=== PATIENT | male | born 1970 | race Caucasian/White ===

== ENCOUNTER 2023-08-19 12:34 | Outpatient (AMB) | payer BC, SELFPAY ==
--- NOTE | 2023-08-19 12:36 | A.OFFPC_ITS ---
Vital Signs 08/19/23 12:40 Height 5 ft 9 in Weight 151 lb 2 oz BMI 22.3 BP 108/64 Blood Pressure Location Lt brachial Position Sitting Pulse 83 Pulse Source Pulse Oximeter Pulse Oximetry (%) 98 Intake Visit Reasons: est care Intake Note: Patient is here as a new patient to establish. Allergies Seasonal Allergies Allergy (Mild, Verified 08/19/23 12:43) Watery Eye Medication List - Last Reconciled 08/19/23 by Jenn Hogan, [facility] albuterol sulfate 90 mcg/actuation 2 puffs inhalation Q4-6H PRN 30 days apixaban (Eliquis) 5 mg PO BID carvedilol 25 mg PO BID digoxin PO furosemide 20 mg PO DAILY loratadine (Claritin) 10 mg PO DAILY losartan 50 mg PO DAILY pantoprazole 40 mg PO DAILY potassium chloride ER 10 mEq PO DAILY spironolactone 25 mg PO DAILY Tobacco use date assessed: 08/19/23 Dental Screening Dental Screen Date: 08/19/23 Did you have a dental visit in the last 12 months?: Yes Did you have a dental problem in the last 6 months where you did not have access to dental care?: No Was dental information given to patient?: No HPI HPI Comments History of Present Illness Details 53 y/o M with seasonal allergies, COPD, AFib, GERD, CHF, current smoker , renal stones Health Maintenance: Colon PSA Specialists: Ward, Dr Bautista, [facility] Here today to est care Coming from [facility] No medical records Afib - recent visit w/ Ward, will see him again in a few months. Admits to some noncompliance w/ meds d/t cost. Tries to ration what he has. GERD is well controlled with diet changes and PPI. 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 Needs FMLA completed. However did not bring the form for care for Others He did bring the own serious health condition form. This was completed with Intermittent Leave from 08/06/23-01/06/24 with 2 episodes of incapacity per week, lasting 2 days per episode. In regards to his COPD, he is a current smoker, working on reduction. Has never been referred for lung ca screening. He is interested in this. Cannot afford his inhalers. Thinks he is supposed to be on Spirivia Respimat. Whatever inhaler he has at home, he is using PRN only. Several ED visits and hospital admissions at [facility]. Would like to review records before ordering labs d/t cost. [facility] Medical History (Updated 08/19/23 @ 15:42 by Jenn Hogan [facility]) Afib COPD (chronic obstructive pulmonary disease) Surgical History (Updated 08/19/23 @ 12:47 by Melina Bentley CMA) No pertinent past surgical history Social History (Updated 08/19/23 @ 12:53 by Melina Bentley CMA) Household Members: None Both parents involved: No Caregiver staying overnight: No Housing: House Are you a primary pet care attendant to a significant other at home: No Do you presently have visiting nurse or other home services: No 75 years or older and lives alone: No Alcohol intake: current Alcohol intake frequency: 0-2 drinks per day Alcohol type: beer and hard liquor Patient Tobacco Use Status: Never used Tobacco Cigarettes Per Day: 10 e-Cigarette/Vaping Use: Never Used Substance Use Type: Crack/Cocaine and Marijuana Special cynthia needs: No service: No Current occupational status: employed Cognitive needs: No Hearing needs: No Vision needs: Yes (Patient wears glasses) Questionnaire PHQ-9 Over the last 2 weeks, how often have you been bothered by any of the following problems? 1. Little interest or pleasure in doing things: not at all 2. Feeling down, depressed, or hopeless: not at all 3. Trouble falling or staying asleep, or sleeping too much: not at all 4. Feeling tired or having little energy: not at all 5. Poor appetite or overeating: not at all 6. Feeling bad about yourself - or that you are a failure or have let yourself or your family down: not at all 7. Trouble concentrating on things, such as reading the newspaper or watching television: not at all 8. Moving or speaking so slowly that other people could have noticed. Or the opposite - being so fidgety or restless that you have been moving around a lot more than usual: not at all 9. Thoughts that you would be better off or of hurting yourself in some way: not at all Total score: 0 Depression Screening Interpretation: Negative Depression Screening Done: Yes 76839 - PHQ-9 Billing: Yes Source: Developed by Drs. Torsten Santillan, Nannette Lloyd, Efren Jc and colleagues, with an educational ehsan from [employer]. Thrive Questionnaire Date Thrive assessed: 08/19/23 I am a: Patient What is your living situation today?: I have a steady place to live Within the past 12 months, did the food you bought not last and you didn't have the money to get more?: Never true Within the past 12 months, did you worry whether your food would run out before you got money to buy more?: Never true Do you have trouble paying for medicines?: Yes Do you have trouble getting transportation to medical appointments?: No Do you have trouble paying your heating and electricity bill?: No Do you have trouble taking care of your child, family member or friend?: No Do you have trouble with day-to-day activities such as bathing, preparing meals, shopping, managing finances, etc.?: No Are you currently unemployed and looking for a job?: No Are you interested in more education?: No Please select the resources that you would like help with: Paying for medicine Currently or been in a relationship where the following occur: no concerns repo rted THRIVE Score: 0 AUDIT C Alcohol Use Questionnaire (AUDIT-C) 1. How often do you have a drink containing alcohol?: 4 or more times a week 2. How many drinks containing alcohol do you have on a typical day when you are drinking?: 1 or 2 3. How often do you have six or more drinks on one occasion?: Never Total Score: 4 Score Reviewed/Action Taken: Yes AVERY-7 AMB Questionnaire AVERY-7 Date AVERY - 7 assessed: 08/19/23 Feeling nervous, anxious, or on edge: 0 = Not at all Not being able to stop or control worryin = Not at all Worrying too much about different things: 0 = Not at all Trouble relaxin = Not at all Being so restless that it is hard to sit still: 0 = Not at all Becoming easily annoyed or irritable: 0 = Not at all Feeling afraid as if something awful might happen: 0 = Not at all Total AVERY-7 score (0-4 normal; 5-9 mild; 10-14 moderate; 15-21 severe): 0 Source: Developed by Drs. Torsten Santillan, Nannette Lloyd, Efren Jc and colleagues, with an educational ehsan from [employer]. AVERY-7 Assessment Billing AVERY-7 Assessment Tool: AVERY-7 Assessment 94784 Review of Systems Const All systems reviewed & are unremarkable except as noted in HPI and below Physical exam (Primary Care) Vital Signs: Last Vital Signs Pulse 83 08/19/23 12:40 BP 108/64 08/19/23 12:40 Pulse Ox 98 08/19/23 12:40 BMI result Body Mass Index 22.3 Tobacco/Smoking Status: Tobacco use Status Tobacco use date assessed 08/19/23 08/19/23 12:51 Patient Tobacco Use Status Never used Tobacco 08/19/23 12:53 e-Cigarette/Vaping Use Never Used 08/19/23 12:51 Are you ready to quit: Yes Tobacco cessation counseling provided: Yes Items discussed: Other Relapse Prevention: discussed the importance of a supportive environment, discussed extending NRT, discussed negative mood or depression after quitting, weight gain after smoking is common and discussed dietary, exercise and/or lifestyle changes Number of minutes spent counselin PHQ-9: PHQ-9 Score PHQ-9: Total score 0 08/19/23 12:56 Depression Screening Interpretation: Negative Thrive Assessment: Date of Thrive Assessment Date Thrive assessed 08/19/23 08/19/23 12:56 Currently or been in a relationship where the following occur: no concerns reported Const Other: Awake alert oriented, pleasant Positive rhinitis Irregular irregular rhythm Lung sounds with inspiratory expiratory wheezes throughout, occasional cough noted during exam Assessment and Plan Assessment & Plan (1) GERD (gastroesophageal reflux disease): Comment: Managed on PPI. Continue at this time. Code(s): K21.9 - Gastro-esophageal reflux disease without esophagitis Qualifiers: Esophagitis presence: without esophagitis Qualified Code(s): K21.9 - Gastro-esophageal reflux disease without esophagitis (2) COPD (chronic obstructive pulmonary disease): Comment: Is supposed to be on Spiriva however can not afford. I will prescribe ProAir today. The ikb-bh-myvtow cost to be around 16 dollars. He reports that he can afford this. I will refer him to pulmonology both for COPD management as well as lung cancer screening. I have also placed a referral to the nurse navigation team to see if they can help him with the cost of his medications. Code(s): J44.9 - Chronic obstructive pulmonary disease, unspecified Qualifiers: COPD type: chronic bronchitis Chronic bronchitis type: mixed simple and mucopurulent Qualified Code(s): J41.8 - Mixed simple and mucopurulent chronic bronchitis (3) Current smoker: Comment: Smoking cessation encouraged. Refer to lung cancer screening program. Code(s): F17.200 - Nicotine dependence, unspecified, uncomplicated (4) Encounter for screening involving social determinants of health (SDoH): Comment: Unable to afford medications. Sent nurse navigation referral to assist. Code(s): Z13.9 - Encounter for screening, unspecified (5) Afib: Comment: Rate controlled carvedilol 25 mg p.o. b.i.d., digoxin. Secondary hypercoagulable state due to AFib on Eliquis 5 mg p.o. b.i.d. Managed by Dr. Bautista Code(s): I48.91 - Unspecified atrial fibrillation Qualifiers: Atrial fibrillation type: longstanding persistent Qualified Code(s): I48.11 - Longstanding persistent atrial fibrillation (6) Secondary hypercoagulable state: Comment: Due to AFib, on Eliquis Code(s): D68.69 - Other thrombophilia (7) CHF (congestive heart failure): Comment: Managed by cardiology. Euvolemic. On carvedilol 25 mg p.o. b.i.d., losartan 50 mg p.o. daily, Lasix 20 mg p.o. daily, potassium chloride 10 mEq p.o. daily, spironolactone 25 mg daily. He reports echocardiogram is up-to-date. I will need to obtain these records. 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 Report weight gain of 3 lb in 24 hours or 5 lb in 1 week. Limit salt. 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 Report weight gain of 3 lb in 24 hours or 5 lb in 1 week. Limit salt. 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 Copy was scanned into chart Code(s): Z02.9 - Encounter for administrative examinations, unspecified Plan This note is constructed using voice recognition software. While every effort has been made to ensure accuracy in pen and pencil repairer, still errors may have been included Sometimes, these errors may affect the content or meaning of the given sentence . Total time spent caring for the patient today was 60 minutes. This includes time spent before the visit reviewing the chart, time spent during the visit, and time spent after the visit on documentation Orders: Referrals Pulmonology Referral F17.200 - Nicotine dependence, unspecified, uncomplicated, J44.9 - Chronic obstructive pulmonary disease, unspecified Nurse Navigator Referral Z13.9 - Encounter for screening, unspecified Cardiology Referral I48.91 - Unspecified atrial fibrillation Medications: New albuterol sulfate 90 mcg/actuation 2 puffs inhalation Q4-6H 30 days PRN 8.5 grams 0RF shortness of breath or wheezing loratadine (Claritin) 10 mg PO DAILY 90 tabs 0RF Patient Instructions: Please request her records to be sent to me for review. Follow up with me in 4- 6 weeks to continue to address chronic conditions. Coding Level of Care Code New Pt Level 5 (05917) Diagnoses Gastroesophageal reflux disease without esophagitis K21.9 Esophagitis presence: without esophagitis Mixed simple and mucopurulent chronic bronchitis J41.8 COPD type: chronic bronchitis Chronic bronchitis type: mixed simple and mucopurulent Current smoker F17.200 Encounter for screening involving social determinants of health (SDoH) Z13.9 Longstanding persistent atrial fibrillation I48.11 Atrial fibrillation type: longstanding persistent Secondary hypercoagulable state D68.69 Chronic congestive heart failure, unspecified heart failure type I50.9 Heart failure type: unspecified Heart failure chronicity: chronic Secondary hyperparathyroidism N25.81 Encounters for administrative purpose Z02.9 Additional Codes AVERY-7 Assessment Billing - AVERY-7 Assessment Tool: AVERY-7 Assessment 54086 ([id number])
[2023-08-19 12:40] VITALS: BP 108/64; PULSE 83; O2SAT 98; BMI 22.3
== END 2023-08-19 13:32 | disposition home or self-care (01) ==
PROVIDERS: Visit Provider Nurse Practitioner Family
DX: K21.9 Gastro-esophageal reflux disease without esophagitis (principal); J41.8 Mixed simple and mucopurulent chronic bronchitis; D68.69 Other thrombophilia; I48.11 Longstanding persistent atrial fibrillation; I50.9 Heart failure, unspecified; N25.81 Secondary hyperparathyroidism of renal origin; F17.210 Nicotine dependence, cigarettes, uncomplicated
CPT/HCPCS: 99205

== ENCOUNTER 2023-09-12 08:24 | Outpatient (AMB) | payer BC, SELFPAY ==
--- NOTE | 2023-09-12 08:43 | MHC.PC.OV ---
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 Accompanied by: Self / Same As Patient Allergies Seasonal Allergies Allergy (Mild, Verified 09/12/23 08:59) Watery Eye Medication List - Last Reconciled 09/12/23 by Jenn Hogan, [facility]- albuterol sulfate 90 mcg/actuation 2 puffs inhalation Q4-6H PRN 30 days apixaban (Eliquis) 5 mg PO BID carvedilol 25 mg PO BID digoxin PO furosemide 20 mg PO DAILY loratadine (Claritin) 10 mg PO DAILY losartan 50 mg PO DAILY pantoprazole 40 mg PO DAILY potassium chloride ER 10 mEq PO DAILY spironolactone 25 mg PO DAILY Tobacco use date assessed: 08/19/23 Dental Screening Dental Screen Date: 09/12/23 Did you have a dental visit in the last 12 months?: No Did you have a dental problem in the last 6 months where you did not have access to dental care?: No Was dental information given to patient?: Yes HPI HPI Comments History of Present Illness Details 53 y/o M with seasonal allergies, COPD, AFib with secondary hypercoaguable state, GERD, CHF with secondary hyperaldosteronism, current smoker , renal stones Health Maintenance: Colon - declined d/t finances. PSA declined d/t finances. tdap 2022 Specialists: Ward, Dr Bautista, [facility] next appt 1 year Pulm Here today to f/u on chronic conditions Did not make Pulm appt yet, will ask front end architect to f/u; did not get Albuterol d/t cost. Also did not get claritin d/t cost. Has been taking additional dose of Lasix over the last few days as he has been feeling bloated. He now needs a refill. Was referred to [facility] to help w/ finances but did not hear from them. message sent again today Remains on intermittent FMLA No medical records - asked if he could please try to get these for me. [facility] Medical History (Updated 09/12/23 @ 07:18 by Jenn Hogan [facility]) Afib COPD (chronic obstructive pulmonary disease) Surgical History (Updated 08/19/23 @ 12:47 by Melina Bentley CMA) No pertinent past surgical history Social History (Updated 08/19/23 @ 12:53 by Melina Bentley CMA) Household Members: None Both parents involved: No Caregiver staying overnight: No Housing: House Are you a primary patient care provider to a significant other at home: No Do you presently have visiting nurse or other home services: No 75 years or older and lives alone: No Alcohol intake: current Alcohol intake frequency: 0-2 drinks per day Alcohol type: beer and hard liquor Patient Tobacco Use Status: Never used Tobacco Cigarettes Per Day: 10 e-Cigarette/Vaping Use: Never Used Substance Use Type: Crack/Cocaine and Marijuana Special cynthia needs: No service: No Current occupational status: employed 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 Torsten Santillan, Nannette Lloyd, Efren Jc and colleagues, with an educational ehsan from [employer]. Review of Systems Const All systems reviewed & are unremarkable except as noted in HPI and below Physical exam (Primary Care) Vital Signs: Last Vital Signs Temp 98 F 09/12/23 08:48 Pulse 62 09/12/23 08:48 Resp 14 09/12/23 08:48 BP 98/70 09/12/23 08:48 Pulse Ox 96 09/12/23 08:48 Oxygen Delivery Method Room Air 09/12/23 08:48 BMI result Body Mass Index 21.7 Tobacco/Smoking Status: Tobacco use Status Tobacco use date assessed 08/19/23 09/12/23 08:45 Patient Tobacco Use Status Never used Tobacco 09/12/23 08:45 e-Cigarette/Vaping Use Never Used 09/12/23 08:45 Are you ready to quit: No Tobacco cessation counseling provided: Yes Items discussed: Other Relapse Prevention: discussed the importance of a supportive environment, discussed extending NRT, discussed negative mood or depression after quitting, weight gain after smoking is common and discussed dietary, exercise and/or lifestyle changes Number of minutes spent counselin CPT code: Less than 3 minutes Thrive Assessment: Date of Thrive Assessment Date Thrive assessed 08/19/23 09/12/23 08:45 Const Other: Awake alert oriented, pleasant MMM Irregular irregular rhythm Lung sounds dim throughout No edema BLE Assessment and Plan Assessment & Plan (1) CHF (congestive heart failure): Comment: Managed by cardiology. Euvolemic. On carvedilol 25 mg p.o. b.i.d., losartan 50 mg p.o. daily, Lasix 20 mg p.o. daily, potassium chloride 10 mEq p.o. daily, spironolactone 25 mg daily. He reports echocardiogram is up-to-date. I will need to obtain these records. Secondary hyperaldosteronism that activates the akkku-sepqpzdaelv-eafdnnwwstc system (RAAS), due to Heart failure Encouraged to weigh self daily. Report weight gain of 3 lb in 24 hours or 5 lb in 1 week. Limit salt. Code(s): I50.9 - Heart failure, unspecified Qualifiers: Heart failure type: unspecified Heart failure chronicity: chronic Qualified Code(s): I50.9 - Heart failure, unspecified (2) Secondary hyperaldosteronism: Comment: Secondary hyperaldosteronism that activates the yepuh-lceimhdtokw-ztmfzommtux system (RAAS), due to Heart failure Encouraged to weigh self daily. Report weight gain of 3 lb in 24 hours or 5 lb in 1 week. Limit salt. Code(s): E26.1 - Secondary hyperaldosteronism (3) Encounter for screening involving social determinants of health (SDoH): Comment: Unable to afford medications. Sent nurse navigation referral to assist. Code(s): Z13.9 - Encounter for screening, unspecified (4) Current smoker: Comment: Smoking cessation encouraged. Refer to lung cancer screening program. Code(s): F17.200 - Nicotine dependence, unspecified, uncomplicated Plan: This note is constructed using voice recognition software. While every effort has been made to ensure accuracy in road sign installer, still errors may have been included Sometimes, these errors may affect the content or meaning of the given sentence . Medications: Changed From furosemide 20 mg PO DAILY To furosemide 40 mg (2 x 20 mg) PO DAILY 60 tabs 2RF Patient Instructions: A new prescription for furosemide has been sent in for 20 mg tablets take 2 tablets daily. Advised the patient that the directions really should be 20 mg daily. Take additional 20 mg tablet as needed for signs and symptoms of heart failure. He has been using 40 mg of Lasix over the last few days due to feeling bloated. He has no signs of hypervolemia today. Advised to go back to taking 20 mg daily. Work with the nurse navigator to help afford prescriptions. Make appointment with pulmonology. Get me or medical records. Work on smoking cessation. Discussed using alternate pharmacy or mail away pharmacy to see if this cut your prescription costs. Return to the office in 3 months for routine follow up. Sooner as needed. Smoking Cessation How to Quit There are a lot of ways to quit smoking and many resources to help you. Family members, friends, and co-workers may be supportive or encouraging, but to be successful the desire and commitment to quit must be your own. Most people who have been able to successfully quit smoking made at least one unsuccessful attempt in the past. Try not to view past attempts to quit as failures, but rather as learning experiences. Stopping smoking or using smokeless tobacco is difficult, but anyone can do it. Know the symptoms to expect when you stop. Common symptoms include: ? An intense craving for nicotine ? Anxiety, tension, restlessness, frustration, or impatience ? Difficulty concentrating ? Drowsiness or trouble sleeping, as well as bad dreams and nightmares ? Drowsiness and trouble sleeping ? Headaches ? Increased appetite and weight gain ? Irritability or depression How severe your symptoms are depends on how long you smoked and how many cigarettes you smoked each day. Feel ready to quit? ? First and foremost, set a quit date and quit completely on that day. Before your quit date, you may begin reducing your cigarette use. But remember, there is no safe level of cigarette smoking. ? List the reasons why you want to quit. Include both short- and long-term benefits. ? Identify the times you are most likely to smoke. For example, do you tend to smoke when feeling stressed or down? When out at night with friends? While drinking coffee or alcohol? When bored? While driving? Right after a meal or sex? During a work break? While watching TV or playing cards? When you are with other smokers? ? Let all of your friends, family, and co-workers know of your plan to stop smoking and your quit date. Just being aware that they know what you're going through can be helpful, especially when you are grumpy. ? Get rid of all your cigarettes just before the quit date, and clean out anything that smells like smoke, such as clothes and furniture. Make a plan about what you will do instead of smoking at those times when you are most likely to smoke. ? Be as specific as possible. For example, drink tea instead of coffee -- tea may not trigger the desire for a cigarette. Or, take a walk when you feel stressed. ? Remove ashtrays and cigarettes from the car. Place pretzels or hard candies there instead. Pretend-smoke with a straw. ? Find activities that focus your hands and mind but are not taxing or fattening. Computer games, solitaire, knitting, sewing, and crossword puzzles may help. ? If you normally smoke after eating, find other ways to end a meal. Play a tape or CD, eat a piece of fruit, get up and make a phone call, or take a walk (a good distraction that also castro calories). Make other changes in your lifestyle. ? Change your daily schedule and habits. Eat at different times or eat several small meals instead of three large ones. Sit in a different chair or even a different room. ? Satisfy your oral habits by eating celery or other low-calorie snack, chewing sugarless gum, or sucking on a cinnamon stick. ? Go to public places and restaurants where smoking is prohibited or restricted. ? Eat regular meals and don't eat too much candy or sweet things. ? Get more exercise. Take walks or ride a bike. Exercise helps relieve the urge to smoke. Set short-term quitting goals and reward yourself when you meet them. ? Every day, put the money you normally spend on cigarettes in a jar. Then buy something pleasurable after a period of time. ? Try not to think about all the days ahead you will need to avoid smoking. Take it one day at a time. ? Even one puff or one cigarette will make your desire for more cigarettes even stronger. However, it is normal to make mistakes. So even if you have one cigarette, you don't need to take the next one. Other tips to help you quit smoking and stick to it: ? Enroll in a smoking cessation program (hospitals, health departments, community centers, and work sites often offer programs). Learn about self-hypnosis or other techniques. ? Ask your health care provider about prescription medications that are safe and appropriate for you. ? Find out about nicotine patches, gum, and sprays. The [place] [employer]'s web site -- www.cancer.org -- is an excellent resource for smokers who are trying to quit, and the [employer] [place] [employer] can help some smokers kick the habit. Above all, don't get discouraged if you aren't able to quit smoking the first time. Nicotine addiction is a hard habit to break. Try something different next time. Develop new strategies, and try again. Many people take several attempts to finally kick the habit. Coding Level of Care Code Est Pt Level 4 (74686) Diagnoses Chronic congestive heart failure, unspecified heart failure type I50.9 Heart failure type: unspecified Heart failure chronicity: chronic Secondary hyperaldosteronism E26.1 Encounter for screening involving social determinants of health (SDoH) Z13.9 Current smoker F17.200
[2023-09-12 08:48] VITALS: BP 98/70; PULSE 62; RESP 14; TEMP 36.6; O2SAT 96; BMI 21.7
== END 2023-09-12 09:14 | disposition home or self-care (01) ==
PROVIDERS: Visit Provider Nurse Practitioner Family
DX: I50.9 Heart failure, unspecified (principal); E26.1 Secondary hyperaldosteronism; Z13.9 Encounter for screening, unspecified; F17.200 Nicotine dependence, unspecified, uncomplicated
CPT/HCPCS: 99214

== ENCOUNTER 2023-12-14 09:11 | Outpatient (AMB) | payer BC, SELFPAY ==
--- NOTE | 2023-12-14 09:13 | A.OFFPC_ITS ---
Vital Signs 12/14/23 09:16 Height 5 ft 9 in Weight 154 lb 8 oz BMI 22.8 BP 132/72 Blood Pressure Location Lt brachial Position Sitting Respiration 15 Comment unable to get pulse or o2 because of poor circulation Intake Visit Reasons: 3 months 30 min fu chronic conditions Intake Note: patient here for a follow up Allergies Seasonal Allergies Allergy (Mild, Verified 12/14/23 09:25) Watery Eye Medication List - Last Reconciled 12/14/23 by Jenn Hogan, [facility]- albuterol sulfate 90 mcg/actuation 2 puffs inhalation Q4-6H PRN 30 days apixaban (Eliquis) 5 mg PO BID carvedilol 25 mg PO BID digoxin PO furosemide 40 mg (2 x 20 mg) PO DAILY loratadine (Claritin) 10 mg PO DAILY losartan 50 mg PO DAILY pantoprazole 40 mg PO DAILY potassium chloride ER 10 mEq PO DAILY spironolactone 25 mg PO DAILY Tobacco use date assessed: 08/19/23 Dental Screening Dental Screen Date: 09/12/23 HPI HPI Comments History of Present Illness Details 53 y/o M with seasonal allergies, COPD, AFib with secondary hypercoaguable state, GERD, CHF with secondary hyperaldosteronism, current smoker , renal stones Health Maintenance: Colon - declined d/t finances. PSA declined d/t finances. tdap 2022 Specialists: Ward, Dr Bautista, [facility] next appt 1 year Pulm Here today for routine fu of chronic conditions. He continues to have financial barriers to care. Upon review of his medications, he reports felt he is not taking spironolactone as he reports no insurance coverage and he can not afford the jit-zj-eaotev cost. He is only taking his Eliquis once per day as he can not afford to take it twice per day. The olv-zp-dembev cost for this is about 200 dollars per month. Overall he is feeling drained with no energy. Reports that he is having swelling in his lower extremities. Has been taking 40 mg of Lasix with very minimal improvement. He reports tolerance and compliance with his other medications. He does endorse chest pain with exertion. States over the weekend he was chopping wood and developed severe chest pain. He tried to relax with the rest of the day. With time the chest pain did improve. He did not seek medical care as he can not afford rmm-so-wvhppv cost for a workup. Overall he feels short of breath. He can not afford any medication other than his p.r.n. albuterol which he is using sparingly. He also can not afford a consult with pulmonology. He was referred. He reports no hospital visits or emergency room visits. He cont to smoke Other nonemergent items include chronic rhinitis and erectile dysfunction. Patient made aware that these will not be addressed today. Exam: Awake alert oriented, pleasant clear nasal drainage MMM Irregular irregular rhythm, tachycardic ins/exp wheezes throughout +2 edema BLE Tearful when talking about his social situation. Plan: Warm handoff to Community navigator regarding the financial constraints for him. A brief intervention was had. A nurse from the nurse navigation team has been trying to reach him but has not been successful. The patient reports that he does have a phone. That it is working. However he does not answer while he was at work. He was made aware of the benefits of the nurse navigation program and also let him know that there is no co-pay services for this. This may help him. He has not let Cardiology know about his constraints. He does not have a follow up scheduled. Clinically he appears to be in heart failure and have AFib with RVR. Offered to do an EKG however the patient reports that he can not afford the charges associated with this. I did also recommend emergency room care given his CHF, AFib and anginal symptoms. Once again he reports that he can not afford this. The patient was made aware of the risks and benefits up to and including . As an alternative, discussed calling Cardiology for a stat consultation. He states that this will cost him 65 dollars out of pocket and that he will pay that rather than eat this week. A call was placed to the lines tender's office. A report was given. An appointment was scheduled for him tomorrow with the nurse practitioner. At this time I have encouraged the patient to continue taking his medications as directed. Advised for him not to ration his medications as the team is working on helping him afford his medications. I have also made the cardiology office aware as well to see if they can help him afford any of his medications. He has been tolerating compliant of all of his therapies. The only limiting factor is that of finances and lack of transport. Unfortunately in addition to all of this, his car broke down and he is in the process of buying a new car which adds further financial constraints. NN will also help w/ food insecurity. Recommend RTO in 3 months, sooner if able. This note is constructed using voice recognition software. While every effort has been made to ensure accuracy in heat treating furnace tender, still errors may have been included Sometimes, these errors may affect the content or meaning of the given sentence . Total time spent caring for the patient today was 75 minutes. This includes time spent before the visit reviewing the chart, time spent during the visit, and time spent after the visit on documentation PFSH Medical History Afib COPD (chronic obstructive pulmonary disease) Surgical History No pertinent past surgical history Social History Household Members: None Both parents involved: No Caregiver staying overnight: No Housing: House Are you a primary care support representative to a significant other at home: No Do you presently have visiting nurse or other home services: No 75 years or older and lives alone: No Alcohol intake: current Alcohol intake frequency: 0-2 drinks per day Alcohol type: beer and hard liquor Patient Tobacco Use Status: Never used Tobacco Cigarettes Per Day: 10 e-Cigarette/Vaping Use: Never Used Substance Use Type: Crack/Cocaine and Marijuana Special cynthia needs: No service: No Current occupational status: employed 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 Torsten Santillan, Nannette Lloyd, Efren Jc and colleagues, with an educational ehsan from [employer]. Physical exam (Primary Care) Vital Signs: Last Vital Signs Resp 15 12/14/23 09:16 BP 132/72 12/14/23 09:16 BMI result Body Mass Index 22.8 Tobacco/Smoking Status: Tobacco use Status Tobacco use date assessed 08/19/23 12/14/23 09:15 Patient Tobacco Use Status Never used Tobacco 12/14/23 09:15 e-Cigarette/Vaping Use Never Used 12/14/23 09:15 Thrive Assessment: Date of Thrive Assessment Date Thrive assessed 08/19/23 12/14/23 09:15 Assessment and Plan Assessment & Plan (1) CHF (congestive heart failure): Comment: in exacerbation as e/b edema and wt gain. Managed by cardiology. On carvedilol 25 mg p.o. b.i.d., losartan 50 mg p.o. daily, Lasix 20 mg p.o. daily, potassium chloride 10 mEq p.o. daily, not taking spironolactone 25 mg daily. He reports echocardiogram is up-to-date. Secondary hyperaldosteronism that activates the jcpuy-svryzwubrem-pkklbxjepep system (RAAS), due to Heart failure Encouraged to weigh self daily. Report weight gain of 3 lb in 24 hours or 5 lb in 1 week. Limit salt. Code(s): I50.9 - Heart failure, unspecified Qualifiers: Heart failure type: unspecified Heart failure chronicity: chronic Qualified Code(s): I50.9 - Heart failure, unspecified (2) Secondary hyperaldosteronism: Comment: Secondary hyperaldosteronism that activates the wdrhf-mduloxnfwul-ebjwkplrzwx system (RAAS), due to Heart failure Encouraged to weigh self daily. Report weight gain of 3 lb in 24 hours or 5 lb in 1 week. Limit salt. Code(s): E26.1 - Secondary hyperaldosteronism (3) Secondary hypercoagulable state: Comment: Due to AFib, on Eliquis Code(s): D68.69 - Other thrombophilia (4) Encounter for screening involving social determinants of health (SDoH): Comment: Unable to afford medications. NN active Code(s): Z13.9 - Encounter for screening, unspecified (5) Current smoker: Comment: Smoking cessation encouraged. Refer to lung cancer screening program declined, cannot afford Code(s): F17.200 - Nicotine dependence, unspecified, uncomplicated (6) Afib: Comment: likely in RVR, Rate controll with carvedilol 25 mg p.o. b.i.d., digoxin. Secondary hypercoagulable state due to AFib on Eliquis 5 mg p.o. b.i.d. ..only taking QD d/t cost.. Managed by Dr. Bautista Code(s): I48.91 - Unspecified atrial fibrillation Qualifiers: Atrial fibrillation type: longstanding persistent Qualified Code(s): I48.11 - Longstanding persistent atrial fibrillation (7) COPD (chronic obstructive pulmonary disease): Comment: Is supposed to be on Spiriva however can not afford. Cont ProAir sparingly as this can worsen Afib and CHF with overuse. The lrq-vn-yteqza cost to be around 16 dollars. He reports that he can afford this. Referred him to pulmonology both for COPD management as well as lung cancer screening but cannot afford, Code(s): J44.9 - Chronic obstructive pulmonary disease, unspecified Qualifiers: COPD type: chronic bronchitis Chronic bronchitis type: mixed simple and mucopurulent Qualified Code(s): J41.8 - Mixed simple and mucopurulent chronic bronchitis Coding Level of Care Code Est Pt Level 5 (70534) Complex EM visit Add On G2211 Diagnoses Chronic congestive heart failure, unspecified heart failure type I50.9 Heart failure type: unspecified Heart failure chronicity: chronic Secondary hyperaldosteronism E26.1 Secondary hypercoagulable state D68.69 Encounter for screening involving social determinants of health (SDoH) Z13.9 Current smoker F17.200 Longstanding persistent atrial fibrillation I48.11 Atrial fibrillation type: longstanding persistent Mixed simple and mucopurulent chronic bronchitis J41.8 COPD type: chronic bronchitis Chronic bronchitis type: mixed simple and mucopurulent CPT Codes [facility] OUTPT/OFFICE VIS - G2212
[2023-12-14 09:16] VITALS: BP 132/72; RESP 15; BMI 22.8
== END 2023-12-14 09:56 | disposition home or self-care (01) ==
PROVIDERS: Visit Provider Nurse Practitioner Family
DX: I50.9 Heart failure, unspecified (principal); E26.1 Secondary hyperaldosteronism; D68.69 Other thrombophilia; I48.11 Longstanding persistent atrial fibrillation; J41.8 Mixed simple and mucopurulent chronic bronchitis; Z13.9 Encounter for screening, unspecified; F17.200 Nicotine dependence, unspecified, uncomplicated

== ENCOUNTER → 2023-12-14 09:11 | Outpatient (BNVA) | payer BC, SELFPAY | PROVIDERS: Visit Provider Nurse Practitioner Family | DX: I50.9 Heart failure, unspecified (principal); E26.1 Secondary hyperaldosteronism; D68.69 Other thrombophilia; I48.11 Longstanding persistent atrial fibrillation; J41.8 Mixed simple and mucopurulent chronic bronchitis; Z79.01 Long term (current) use of anticoagulants; Z79.899 Other long term (current) drug therapy ==

== ENCOUNTER → 2024-01-12 08:59 | Outpatient (BNVA) | payer BC, SELFPAY | PROVIDERS: PCP Nurse Practitioner Family ==

== ENCOUNTER 2024-09-21 08:42 | Outpatient (AMB) | payer OTHER, SELFPAY ==
--- NOTE | 2024-09-21 08:52 | A.OFFPC_ITS ---
Vital Signs 3 09/21/24 08:56 Height 5 ft 9 in Weight 154 lb BMI 22.7 BP 118/70 Blood Pressure Location Rt brachial Position Sitting Respiration 12 Temp 96.9 F Temp Source Oral Comment unable to take o2 and pulse do to hands having poor circulation and cold corey Intake Visit Reasons: 3 mo 30min routine fu Intake Note: Routine 3 month follow up. Patient c/o both feet painful, can't walk, stand and red with purple coloring on both foot. 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: No Allergies Seasonal Allergies Allergy (Mild, Verified 09/21/24 09:02) Watery Eye Medication List - Last Reconciled 09/21/24 by Jenn Hogan, ACID POLYMERIZATION OPERATOR- albuterol sulfate 90 mcg/actuation 2 puffs inhalation Q4-6H PRN apixaban (Eliquis) 5 mg PO BID carvedilol 25 mg PO BID digoxin 0.125 mg PO DAILY furosemide 40 mg (2 x 20 mg) PO DAILY loratadine 10 mg PO DAILY losartan 50 mg PO DAILY pantoprazole 40 mg PO DAILY potassium chloride ER 10 mEq PO DAILY spironolactone 25 mg PO DAILY Tobacco use date assessed: 09/21/24 Dental Screening Dental Screen Date: 09/21/24 Did you have a dental visit in the last 12 months?: Yes Did you have a dental problem in the last 6 months where you did not have access to dental care?: No Was dental information given to patient?: Patient has dentist HPI HPI Comments 2 History of Present Illness0 Details 54 y/o M with seasonal allergies, COPD, AFib with secondary hypercoaguable state, GERD, CHF with secondary hyperaldosteronism, current smoker , renal stones Health Maintenance: Colon - declined d/t finances. tdap 2022 Specialists: Ward, Dr Bautista, [facility] History of Present Illness - The patient is a 54-year-old male pres enting with a routine follow-up for chronic conditions and evaluation of symptoms in the feet. - History of uncontrolled CHF and AFib d ue to social determinants and medication access. - Feet with fluctuating swelling and dis coloration; peak severity reported in the past three days. - Difficulty walking, requiring work abs ence; current medication adherence with Eliquis, Carvedilol, and Digoxin maintained. - Discontinued furosemide for five days; foot symptoms worsened then. - Pain localized in big toe and arch, re cently severe in the right foot; discoloration persists post-resolution of swelling. - Negative for fever, chills, calf pain; no gout reported yet suggestive signs observed. - Reports burning and aching sensation i n affected toes; elevating attempts ineffective. - Unrelated urinary odor change suggesti ve of dehydration unlikely; dark urine noted. - Last labs during hospital stay months prior; uncertain insurance coverage post-switch. - NN has helped w/ finances- taking all meds as directed; due for Cards fu ??? Dr Bautista in [facility] network. - + etoh and poor diet Review of Systems - Cardiovascular: Denies fever or chills . - Musculoskeletal: Reports pain in big t oe and arch of the right foot, swelling, discoloration; denies calf pain. - Gastrointestinal: Reports urine with s ulfur odor, dark color. - Dermatologic: Reports discoloration of both feet. - General: Denies recent fever or chills . - Neurological: Reports no unusual calf pain. - Urological: Denies sexual activity or symptoms of sexually transmitted infections. Physical Exam Awake alert oriented, pleasant clear nasal drainage MMM Irregular irregular rhythm, LS CTAB Dim throughout no edema BLE, + PP, warm over base of bilat great toe, fungal toe nails, see pictures Discussion Notes During the consultation, I discussed the reasons potentially contributing to the patient's foot discomfort, primarily focusing on gout as a likely diagnosis based on the clinical presentation. I explained the proposed treatment with colchicine. I reviewed dosing instructions thoroughly and advised that although diarrhea may occur, improvement in symptoms would indicate the therapy's effectiveness. A regimen with clear do's and don'ts was elaborated, ensuring he understood the importance of medication adherence and the need to restart furosemide to manage his CHF. I recommended contacting insurance regarding lab and urine test coverage. The patient was advised to consult Jaleesa, the nurse navigator, regarding ongoing insurance-related queries. Additionally, I encouraged him to pursue a cardiology referral to a compatible provider network within his insurance limits. Recommendations included follow-up in three months or sooner if needed. I ensured he received clear education on the proposed medical plan, emphasizing self-monitoring and the benefits of continued adherence to prescribed medications, and encouraged discussion with his insurance company to ensure adequate provision of health services. Assessment and Plan 1. Congestive Heart Failure (CHF) - Continue Eliquis, Carvedilol, Digoxin; restart furosemide. - Ensure medication adherence and seek c ardiology referral. 2. Atrial Fibrillation (AFib) - Continue Eliquis. - Stress medication adherence. 3. Gout - Initiate colchicine. - Monitor symptoms, discuss dietary rest rictions. 4. Fungal Nails - future intervention as needed. 5. Unusual Urine Characteristics - Pursue lab testing to rule out dehydra tion or other factors. - Explore insurance coverage for necessa ry diagnostics. Patient Instructions - Keep taking all heart medications as p rescribed. - Restart the water pill (furosemide) im mediately. - Begin gout medication (colchicine) as directed: two pills now, one pill in one hour. - Drink plenty of fluids to help with da rk urine. - Avoid foods and drinks that might upse t gout like alcohol and foods high in purines. - Talk with insurance about coverage for lab tests. - Contact nurse Jaleesa for help with insur ance questions. Consent Patient was informed and verbally consented to the use of an ambient scribe for clinic note documentation during this visit. Total time spent caring for the patient today was 45 minutes. This includes time spent before the visit reviewing the chart, time spent during the visit, and time spent after the visit on documentation, reviewing laboratory results, diagnostic imaging, medications, performing a medically necessary evaluation, counseling on diagnoses, care coordination, ordering appropriate tests, ordering appropriate medications, review of tests performed by other providers, reporting test results with the patient, communication with other healthcare providers. [facility] Medical History Afib COPD (chronic obstructive pulmonary disease) Surgical History No pertinent past surgical history Social History Household Members: None Both parents involved: No Caregiver staying overnight: No Housing: House Are you a primary healthcare network consultant to a significant other at home: No Do you presently have visiting nurse or other home services: No 75 years or older and lives alone: No Alcohol intake: current Alcohol intake frequency: 0-2 drinks per day Alcohol type: beer and hard liquor Patient Tobacco Use Status: Never used Tobacco Cigarettes Per Day: 10 e-Cigarette/Vaping Use: Never Used Substance Use Type: Crack/Cocaine and Marijuana Special cynthia needs: No service: No Current occupational status: employed 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 1. Little interest or pleasure in doing things: not at all 2. Feeling down, depressed, or hopeless: not at all 3. Trouble falling or staying asleep, or sleeping too much: not at all 4. Feeling tired or having little energy: not at all 5. Poor appetite or overeating: not at all 6. Feeling bad about yourself - or that you are a failure or have let yourself or your family down: not at all 7. Trouble concentrating on things, such as reading the newspaper or watching television: not at all 8. Moving or speaking so slowly that other people could have noticed. Or the opposite - being so fidgety or restless that you have been moving around a lot more than usual: not at all 9. Thoughts that you would be better off or of hurting yourself in some way: not at all Total score: 0 Depression Screening Interpretation: Negative Depression Screening Done: Yes 92943 - PHQ-9 Billing: Yes Source: Developed by Drs. Torsten Santillan, Nannette Lolyd, Efren Jc and colleagues, with an educational ehsan from [employer]. Thrive Questionnaire Date Thrive assessed: 09/21/24 I am a: Patient What is your living situation today?: I choose not to answer this question Within the past 12 months, did the food you bought not last and you didn't have the money to get more?: Sometimes True Within the past 12 months, did you worry whether your food would run out before you got money to buy more?: Sometimes True Do you have trouble paying for medicines?: Yes Do you have trouble getting transportation to medical appointments?: Yes Do you have trouble paying your heating and electricity bill?: Yes Do you have trouble taking care of your child, family member or friend?: I choose not to answer this question Do you have trouble with day-to-day activities such as bathing, preparing meals, shopping, managing finances, etc.?: No Are you currently unemployed and looking for a job?: No Are you interested in more education?: No Please select the resources that you would like help with: None Currently or been in a relationship where the following occur: No concerns reported THRIVE Score: 4 AUDIT C Alcohol Use Questionnaire (AUDIT-C) 1. How often do you have a drink containing alcohol?: Never 2. How many drinks containing alcohol do you have on a typical day when you are drinking?: 1 or 2 3. How often do you have six or more drinks on one occasion?: Never Total Score: 0 Score Reviewed/Action Taken: Yes AVERY-7 AMB Questionnaire AVERY-7 Date AVERY - 7 assessed: 09/21/24 Feeling nervous, anxious, or on edge: 0 = Not at all Not being able to stop or control worryin = Not at all Worrying too much about different things: 0 = Not at all Trouble relaxin = Not at all Being so restless that it is hard to sit still: 0 = Not at all Becoming easily annoyed or irritable: 0 = Not at all Feeling afraid as if something awful might happen: 0 = Not at all Total AVERY-7 score (0-4 normal; 5-9 mild; 10-14 moderate; 15-21 severe): 0 Source: Developed by Drs. Torsten Santillan, Nannette Lloyd, Efren Jc and colleagues, with an educational ehsan from [employer]. AVERY-7 Assessment Billing AVERY-7 Assessment Tool: AVERY-7 Assessment 45007 ACT Questionnaire In the past 4 weeks, how much of the time did your asthma keep you from getting as much done at work, school or at home?: None of the time During the past 4 weeks, how often have you had shortness of breath?: Not at all During the past 4 weeks, how often did your asthma symptoms wake you up at night or earlier than usual in the morning?: Not at all During the past 4 weeks, how often have you had to use your rescue inhaler or nebulizer medication?: Not at all How would you rate your asthma control during the past 4 weeks?: Completely controlled ACT Interpretation: Negative Score: 25 Physical exam (Primary Care) Vital Signs: Last Vital Signs Temp 96.9 F 09/21/24 08:56 Resp 12 09/21/24 08:56 BP 118/70 09/21/24 08:56 BMI result Body Mass Index 22.7 Tobacco/Smoking Status: Tobacco use Status Tobacco use date assessed 09/21/24 09/21/24 09:00 Patient Tobacco Use Status Never used Tobacco 09/21/24 09:00 e-Cigarette/Vaping Use Never Used 09/21/24 09:00 Are you ready to quit: No Tobacco cessation counseling provided: Yes Items discussed: Nicotine replacement, QuitWorks and Other Relapse Prevention: discussed the importance of a supportive environment, discussed extending NRT, discussed negative mood or depression after quitting, weight gain after smoking is common and discussed dietary, exercise and/or lifestyle changes Number of minutes spent counselin CPT code: 06589 - 4-10 Minutes Depression Screening Interpretation: Negative Thrive Assessment: Date of Thrive Assessment Date Thrive assessed 08/19/23 09/21/24 09:00 Currently or been in a relationship where the following occur: No concerns reported Coding Level of Care Code Est Pt Level 5 (98570) Complex EM visit Add On G2211 Diagnoses Chronic congestive heart failure, unspecified heart failure type I50.9 Heart failure type: unspecified Heart failure chronicity: chronic Longstanding persistent atrial fibrillation I48.11 Atrial fibrillation type: longstanding persistent Secondary hypercoagulable state D68.69 Secondary hyperaldosteronism E26.1 Mixed simple and mucopurulent chronic bronchitis J41.8 COPD type: chronic bronchitis Chronic bronchitis type: mixed simple and mucopurulent Current smoker F17.200 Encounter for screening involving social determinants of health (SDoH) Z13.9 Acute gout due to other secondary cause involving toe, unspecified laterality M10.479 Gout site: toe Gout etiology: other secondary cause Chronicity: acute Laterality: unspecified laterality Foul smelling urine R82.90 Additional Codes PHQ-9 - 77098 - PHQ-9 Billing: Yes ([id number]) AVERY-7 Assessment Billing - AVERY-7 Assessment Tool: AVERY-7 Assessment 68113 ([id number]) Asthma Control Questionnaire - ACT Interpretation: Negative ([id number]) Vital Signs *Quality* - CPT code: 30895 - 4-10 Minutes ([id number]) Assessment & Plan Assessment & Plan (1) CHF (congestive heart failure): Comment: Managed by cardiology. On carvedilol 25 mg p.o. b.i.d., losartan 50 mg p.o. daily, Lasix 20 mg p.o. daily, potassium chloride 10 mEq p.o. daily, not taking spironolactone 25 mg daily. He reports echocardiogram is up-to-date. Secondary hyperaldosteronism that activates the bfjlu-imopnrddnpp-bskvwaydpud system (RAAS), due to Heart failure Encouraged to weigh self daily. Report weight gain of 3 lb in 24 hours or 5 lb in 1 week. Limit salt. Code(s): I50.9 - Heart failure, unspecified Category: Medical Qualifiers: Heart failure type: unspecified Heart failure chronicity: chronic Q ualified Code(s): I50.9 - Heart failure, unspecified (2) Afib: Comment: Rate controll with carvedilol 25 mg p.o. b.i.d., digoxin. Secondary hypercoagulable state due to AFib on Eliquis 5 mg p.o. b.i.d. Managed by Dr. Bautista Code(s): I48.91 - Unspecified atrial fibrillation Category: Medical Qualifiers: Atrial fibrillation type: longstanding persistent Qualified Code(s): I 48.11 - Longstanding persistent atrial fibrillation (3) Secondary hypercoagulable state: Comment: Due to AFib, on Eliquis Code(s): D68.69 - Other thrombophilia Category: Medical (4) Secondary hyperaldosteronism: Comment: Secondary hyperaldosteronism that activates the fimai-wqjpobdikni-fbzhobpgidu system (RAAS), due to Heart failure Encouraged to weigh self daily. Report weight gain of 3 lb in 24 hours or 5 lb in 1 week. Limit salt. Code(s): E26.1 - Secondary hyperaldosteronism Category: Medical (5) COPD (chronic obstructive pulmonary disease): Comment: Is supposed to be on Spiriva however can not afford. Cont ProAir sparingly as this can worsen Afib and CHF with overuse. Referred him to pulmonology both for COPD management as well as lung cancer screening but cannot afford, Code(s): J44.9 - Chronic obstructive pulmonary disease, unspecified Category: Medical Qualifiers: COPD type: chronic bronchitis Chronic bronchitis type: mixed simple and mucopurulent Qualified Code(s): J41.8 - Mixed simple and mucopurulent chronic bronchitis (6) Current smoker: Comment: Smoking cessation encouraged. Refer to lung cancer screening program declined, cannot afford Code(s): F17.200 - Nicotine dependence, unspecified, uncomplicated Category: Social Hx (7) Encounter for screening involving social determinants of health (SDoH): Comment: NN active Code(s): Z13.9 - Encounter for screening, unspecified Category: Medical (8) Gout: Code(s): M10.9 - Gout, unspecified Category: Medical Qualifiers: Gout site: toe Gout etiology: other secondary cause Chronicity: acute Laterality: unspecified laterality Qualified Code(s): M10.479 - Other secondary gout, unspecified ankle and foot (9) Foul smelling urine: Code(s): R82.90 - Unspecified abnormal findings in urine Category: Medical Plan . Orders: Orders 2 Lipid Panel Today R82.90 - Unspecified abnormal findings in urine Microalbumin, Random (w Creat) Today R82.90 - Unspecified abnormal findings in urine Vitamin B12 and Folate Today R82.90 - Unspecified abnormal findings in urine Prostate Specific Antigen Scr Today R82.90 - Unspecified abnormal findings in urine Comprehensive Met. Panel Today R82.90 - Unspecified abnormal findings in urine UA CC w/rflx Micro + Cult Today R82.90 - Unspecified abnormal findings in urine Medications: New 2 colchicine TAKE 2 TABS PO X 1 THEN 1 TAB PO 1 HOUR LATER. MAX 1.8MG 0.6 mg PO DIRECTED 3 caps 2RF 1 day
[2024-09-21 08:56] VITALS: BP 118/70; RESP 12; TEMP 36.1; BMI 22.7
== END 2024-09-21 09:53 | disposition home or self-care (01) ==
LOC: HO.HMCFM 08:42
PROVIDERS: PCP Nurse Practitioner Family; Visit Provider Nurse Practitioner Family
DX: I50.9 Heart failure, unspecified (principal); I48.11 Longstanding persistent atrial fibrillation; J41.8 Mixed simple and mucopurulent chronic bronchitis; D68.69 Other thrombophilia; E26.1 Secondary hyperaldosteronism; F17.200 Nicotine dependence, unspecified, uncomplicated; M10.479 Other secondary gout, unspecified ankle and foot; R82.90 Unspecified abnormal findings in urine

== ENCOUNTER → 2024-09-21 08:42 | Outpatient (BNVA) | payer OTHER, SELFPAY | PROVIDERS: PCP Nurse Practitioner Family; Visit Provider Nurse Practitioner Family | DX: I48.11 Longstanding persistent atrial fibrillation (principal); I50.9 Heart failure, unspecified; J30.2 Other seasonal allergic rhinitis; I48.91 Unspecified atrial fibrillation; K21.9 Gastro-esophageal reflux disease without esophagitis; B35.1 Tinea unguium; D68.69 Other thrombophilia; E26.1 Secondary hyperaldosteronism; J41.8 Mixed simple and mucopurulent chronic bronchitis; M10.479 Other secondary gout, unspecified ankle and foot; F17.210 Nicotine dependence, cigarettes, uncomplicated; Z71.6 Tobacco abuse counseling | CPT/HCPCS: 96127; 96160 ==